=== PATIENT | female | born 1980 | race Caucasian/White ===

== ENCOUNTER 2021-09-08 15:35 | Outpatient (CLI) | payer BC | END 2021-09-08 15:36 | disposition home or self-care (01) | LOC: CSHULT 15:35 | PROVIDERS: ATTEND Family Medicine | DX: R22.1 Localized swelling, mass and lump, neck (principal) | CPT/HCPCS: 76536 ==

== ENCOUNTER 2023-05-24 08:32 | Outpatient (CLI) | payer BC | END 2023-05-24 08:33 | disposition home or self-care (01) | LOC: CSHULT 08:32 | PROVIDERS: ATTEND Family Medicine | DX: R10.9 Unspecified abdominal pain (principal); N94.9 Unspecified condition associated with female genital organs and menstrual cycle | CPT/HCPCS: 76700; 76856 ==